=== PATIENT | male | born 1930 | race Caucasian/White ===

== ENCOUNTER 2019-01-21 16:51 | Inpatient (IN) | payer MEDICARE, OTHER ==
[~2019-01-21] VITALS: Ht 160 cm; Wt 53.5 kg
--- NOTE | 2019-01-21 17:00 | NUR ---
PT [id number], C/O DIZZINESS SINCE THIS MORNING, NO BLURRED VISION, PT IS AAOX3, NOT IN RESPIRATORY DISTRESS, V/S STABLE, HOOKED TO MONITOR, KEPT RESTED AND COMFORTABLE.
--- NOTE | 2019-01-21 17:08 | NUR ---
IV LINE ESTABLISHED, LABS DRAWNED AND SENT TO LAB.
[2019-01-21 17:28] LABS: BASOPHILS % (AUTO) 0.6 % (0.0-2.0); EOSINOPHILS % (AUTO) 1.6 % (0.0-6.0); HEMATOCRIT 31 % (39-51); HEMOGLOBIN 10.3 g/dL (13.5-17.5); LYMPHOCYTES # (AUTO) 1.3 /CMM (0.8-4.8); LYMPHOCYTES % (AUTO) 24.1 % (20.0-44.0); MEAN CORPUSCULAR HGB CONC 33 g/dl (31.0-36.0); MEAN CORPUSCULAR VOLUME 79 fL (80-96); MONOCYTES # (AUTO) 0.6 /CMM (0.1-1.30); MONOCYTES % (AUTO) 11.3 % (2.0-12.0); NEUTROPHILS # (AUTO) 3.4 /CMM (1.8-8.9); NEUTROPHILS % (AUTO) 62.4 % (43.0-81.0); PLATELET COUNT (AUTO) 135 /CMM (150-450); RED BLOOD CELL COUNT(AUTO) 3.97 MIL/uL (4.5-6.0); WHITE BLOOD COUNT (AUTO) 5.4 K/uL (4.3-11.0)
[2019-01-21 17:38] LABS: CALCIUM, SERUM 9.1 mg/dL (8.5-10.1); CARBON DIOXIDE 28 mmol/L (21-32); CHLORIDE 99 mmol/L (98-107); CREATININE 2.9 mg/dL (0.6-1.3); GLUCOSE 103 mg/dL (74-106); POTASSIUM 4.6 mmol/L (3.5-5.1); SODIUM SERUM 132 mmol/L (136-145)
[2019-01-21 17:39] LABS: UREA NITROGEN, BLOOD 100 mg/dL (7-18)
--- NOTE | 2019-01-21 17:55 | NUR ---
PT IS BACK FROM THE CT SCAN.
--- NOTE | 2019-01-21 19:29 | NUR ---
REPORT TO KIKI DUMONT FOR [facility].
--- NOTE | 2019-01-21 19:40 | NUR ---
EPIC PAGED FOR POSSIBLE ADMISSIONS
--- NOTE | 2019-01-21 20:06 | NUR ---
ADMIT 307-1 TELE DX ACUTE KIDNEY INJURY ACCEPTING [facility]
--- NOTE | 2019-01-21 20:13 | NUR ---
REPORT GIVEN TO SAND MIXERKIKI GOLDBERG FOR [facility]
[2019-01-21] MEDS ORDERED: IV NS 0.9% 1,000 ML IV PRN (20:45)
--- NOTE | 2019-01-21 20:50 | NUR ---
BUSINESS ANALYTICS MANAGER ADMISSION NOTES RECEIVED PT FROM ER VIA [facility] ACCOMPANIED BY TWO DAUGHTERS, PT AWAKE ALERT ORIENTEDX4, BREATHING EVEN AND UNLABORED ON ROOM AIR. NO COMPLAINT OF PAIN OR DISCOMFORT AT THIS TIME, IV ACCESS ON THE R AC 18G SL PATENT AND FLUSHING. SPD TECH IN PLACE, BED IN LOWEST LOCKED POSITION, CALL LIGHT WITHIN REACH AT ALL TIMES, WILL CONTINUE TO MONITOR.
[2019-01-21] MEDS ORDERED: ZOLPIDEM TARTRATE 5 MG TABLET PO PRN (21:00)
[2019-01-21] MEDS ORDERED: MAG HYDROX/AL HYDROX/SIMETH 30 ML UDC PO PRN (21:00)
[2019-01-21] MEDS ORDERED: ONDANSETRON HCL/PF 4 MG/2 ML VIAL IVP PRN (21:00)
[2019-01-21] MEDS ORDERED: MAGNESIUM HYDROXIDE 30 ML UDC PO PRN (21:00)
[2019-01-21] MEDS ORDERED: HYDROCODONE/APAP 5/325MG 1 EACH TABLET PO PRN (21:00)
[2019-01-21] MEDS ORDERED: Z GUARD REMEDY 2 OZ OINT TP PRN (21:00)
[2019-01-21] MEDS ORDERED: ACETAMINOPHEN 325 MG TABLET PO PRN (21:00)
[2019-01-21] MEDS ORDERED: CLOP75TA15 PO (21:11)
[2019-01-21] MEDS ORDERED: LOSA100T31 PO (21:11)
[2019-01-21] MEDS ORDERED: AMLO5TAB9 PO (21:11)
[2019-01-21] MEDS ORDERED: HYDR12.5 PO (21:11)
[2019-01-21] MEDS ORDERED: TAMS-12 PO (21:11)
[2019-01-21] MEDS ORDERED: ASPI-605 PO (21:11)
[2019-01-21] MEDS ORDERED: CARV6.252 PO (21:11)
[2019-01-21] MEDS ORDERED: ATOR40TA PO (21:11)
[2019-01-21 21:30] VITALS: BP 152/83
[2019-01-21 21:38] LABS: FREE PSA 1.45 ng/mL (0.00-45); PROSTATE SPECIFIC ANTIGEN SCR 3.1 ng/mL (0.00-4.00)
[2019-01-21 23:04] LABS: IRON, SERUM 91 ug/dl (50-175); TOTAL IRON BINDING CAPACITY 280 ug/dl (250-450)
[2019-01-22] VITALS: BP 130/55
[2019-01-22 04:00] VITALS: BP 126/55
--- NOTE | 2019-01-22 06:08 | NUR ---
PT REMAINS IN BED, SLEEPING, AROUSES EASILY TO NAME CALL, BREATHING EVEN AND UNLABORED ON ROOM AIR. NO COMPLAINT OF PAIN OR DISCOMFORT AT THIS TIME, IV ACCESS ON THE R AC 18G NS @75ML//HR PATENT AND FLUSHING. KILN REMOVER IN PLACE SR IN THE 60S, BED IN LOWEST LOCKED POSITION, CALL LIGHT WITHIN REACH AT ALL TIMES, WILL ENDORSE TO DAY NURSE
[2019-01-22 06:33] LABS: BASOPHILS % (AUTO) 0.4 % (0.0-2.0); EOSINOPHILS % (AUTO) 1.6 % (0.0-6.0); HEMATOCRIT 30 % (39-51); HEMOGLOBIN 9.9 g/dL (13.5-17.5); LYMPHOCYTES # (AUTO) 1.3 /CMM (0.8-4.8); LYMPHOCYTES % (AUTO) 22.4 % (20.0-44.0); MEAN CORPUSCULAR HGB CONC 33 g/dl (31.0-36.0); MEAN CORPUSCULAR VOLUME 78 fL (80-96); MONOCYTES # (AUTO) 0.6 /CMM (0.1-1.30); MONOCYTES % (AUTO) 10.2 % (2.0-12.0); NEUTROPHILS # (AUTO) 3.7 /CMM (1.8-8.9); NEUTROPHILS % (AUTO) 65.4 % (43.0-81.0); PLATELET COUNT (AUTO) 120 /CMM (150-450); WHITE BLOOD COUNT (AUTO) 5.6 K/uL (4.3-11.0)
[2019-01-22 06:39] LABS: CHOLESTEROL 77 mg/dL (<200); HDL CHOLESTEROL 41 mg/dL (40-60); LDL 32 mg/dL (0-99); TRIGLYCERIDES 58 mg/dL (30-150)
[2019-01-22 06:42] LABS: ALANINE AMINOTRANSFERASE 18 U/L (12-78); ALBUMIN 3.5 g/dL (3.4-5.0); ALKALINE PHOSPHATASE 66 U/L (46-116); ASPARTATE AMINOTRANSFERASE 14 U/L (15-37); BILIRUBIN,TOTAL 0.5 mg/dL (0.2-1.0); CARBON DIOXIDE 25 mmol/L (21-32); CHLORIDE 104 mmol/L (98-107); GLUCOSE 78 mg/dL (74-106); MAGNESIUM 3.3 mg/dL (1.8-2.4); PHOSPHORUS 5.5 mg/dL (2.5-4.9); POTASSIUM 4.1 mmol/L (3.5-5.1); SODIUM SERUM 140 mmol/L (136-145); TOTAL PROTEIN, SERUM 6.9 g/dL (6.4-8.2)
[2019-01-22 06:50] LABS: UREA NITROGEN, BLOOD 101 mg/dL (7-18)
[2019-01-22 08:00] VITALS: BP 134/52
--- NOTE | 2019-01-22 08:00 | NUR ---
RN Notes received patient in the bed a/o x4, patient stable, no acute respiratory distress, v/s stable. patient refused pain. Encouraged to express feelings and concerns. Patient bed rest, using urinal. iv access on right ac area intact infusing NS at 75 ml/hr, call light within to reach. will continued monitoring.
--- NOTE | 2019-01-22 11:00 | NUR ---
rn notes Seen patient by hospitalist, and nephro MD, orders taken and carried out. Collected UA specimen on clean catch. continued monitoring.
[2019-01-22] MEDS ORDERED: SIMETHICONE 80 MG TAB.CHEW PO PRN (12:30)
--- NOTE | 2019-01-22 15:00 | NUR ---
RN Notes Patient resting in the bed, no acute respiratory distress, call light within to reach, continued monitoring.
[2019-01-22 15:23] LABS: APPEARANCE,URINE CLEAR (CLEAR); BILIRUBIN,URINE NEGATIVE (NEGATIVE); BLOOD, URINE NEGATIVE Ery/uL (NEGATIVE); COLOR,URINE YELLOW (YELLOW); KETONES,URINE NEGATIVE (NEGATIVE); LEUKOCYTE ESTERASE ,URINE NEGATIVE (NEGATIVE); NITRITE, URINE NEGATIVE (NEGATIVE); PH,URINE 5.5 (5.0-8.0); PROTEIN,URINE NEGATIVE (NEGATIVE); UGLUCOSE NEGATIVE (NEGATIVE); UROBILINOGEN,URINE 0.2 EU/dL (0.2)
[2019-01-22 16:00] VITALS: BP 129/53
--- NOTE | 2019-01-22 19:34 | NUR ---
RN CLOSING NOTES Patient awake and comfortable in bed. A/O x 4. VS stable with no acute distress. Denies pain. Breathing even and unlabored on room air. IV access on RAC clean, dry and intact. IV flushes well. All scheduled medications administered. Safety precautions in place. Call light within reach. Will endorse care of plan to oncoming nurse.
[2019-01-22 20:00] VITALS: BP 132/56
--- NOTE | 2019-01-22 20:26 | NUR ---
RN MS OPENING NOTES PT IN BED, AWAKE ALERT ORIENTEDX4, BREATHING EVEN AND UNLABORED ON ROOM AIR. NO COMPLAINT OF PAIN OR DISCOMFORT AT THIS TIME, IV ACCESS ON THE R AC 18G NS @100ML/HR. CANVAS WORKER IN PLACE, BED IN LOWEST LOCKED POSITION, CALL LIGHT WITHIN REACH AT ALL TIMES, WILL CONTINUE TO MONITOR.
[2019-01-22] MEDS: IV NS 0.9% 1,000 ML IV PRN (21:14)
[2019-01-22] MEDS: TAMSULOSIN 0.4 MG CAP.SR.24H PO SCH (21:15)
[2019-01-23 04:02] VITALS: BP 132/56
--- NOTE | 2019-01-23 06:05 | NUR ---
RN MS CLOSING NOTES PT REMAINS IN BED, SLEEPING, AROUSES EASILY TO NAME CALL, BREATHING EVEN AND UNLABORED ON ROOM AIR. NO COMPLAINT OF PAIN OR DISCOMFORT AT THIS TIME, IV ACCESS ON THE R AC 18G NS @100ML//HR PATENT AND FLUSHING.STOOL SAMPLE COLLECTED FOR OB.BED IN LOWEST LOCKED POSITION, CALL LIGHT WITHIN REACH AT ALL TIMES, WILL ENDORSE TO DAY NURSE
[2019-01-23] MEDS: IV NS 0.9% 1,000 ML IV PRN (06:26)
[2019-01-23 06:49] LABS: BASOPHILS % (AUTO) 0.5 % (0.0-2.0); EOSINOPHILS % (AUTO) 1.7 % (0.0-6.0); HEMATOCRIT 33 % (39-51); HEMOGLOBIN 10.9 g/dL (13.5-17.5); LYMPHOCYTES # (AUTO) 1.1 /CMM (0.8-4.8); LYMPHOCYTES % (AUTO) 22.1 % (20.0-44.0); MEAN CORPUSCULAR HGB CONC 33 g/dl (31.0-36.0); MEAN CORPUSCULAR VOLUME 79 fL (80-96); MONOCYTES # (AUTO) 0.5 /CMM (0.1-1.30); MONOCYTES % (AUTO) 9.3 % (2.0-12.0); NEUTROPHILS # (AUTO) 3.2 /CMM (1.8-8.9); NEUTROPHILS % (AUTO) 66.4 % (43.0-81.0); PLATELET COUNT (AUTO) 122 /CMM (150-450); RED BLOOD CELL COUNT(AUTO) 4.19 MIL/uL (4.5-6.0); WHITE BLOOD COUNT (AUTO) 4.9 K/uL (4.3-11.0)
[2019-01-23 06:58] LABS: ALANINE AMINOTRANSFERASE 17 U/L (12-78); ALBUMIN 3.7 g/dL (3.4-5.0); ALKALINE PHOSPHATASE 67 U/L (46-116); ASPARTATE AMINOTRANSFERASE 17 U/L (15-37); BILIRUBIN,TOTAL 0.5 mg/dL (0.2-1.0); CARBON DIOXIDE 23 mmol/L (21-32); CHLORIDE 109 mmol/L (98-107); CREATININE 2.3 mg/dL (0.6-1.3); GLUCOSE 77 mg/dL (74-106); PHOSPHORUS 4.6 mg/dL (2.5-4.9); POTASSIUM 4.3 mmol/L (3.5-5.1); SODIUM SERUM 144 mmol/L (136-145); TOTAL PROTEIN, SERUM 7.5 g/dL (6.4-8.2)
[2019-01-23 07:00] LABS: UREA NITROGEN, BLOOD 86 mg/dL (7-18)
[2019-01-23 07:29] LABS: CREATINE KINASE, TOTAL 54 U/L (39-308); FERRITIN 355 ng/mL (8-388)
--- NOTE | 2019-01-23 07:30 | NUR ---
MS RN Opening Notes Patient asleep, resting in bed. Semi-Fowlers position. Alert and oriented x4, able to make needs known. Farsi/Albanian speaking. No complaints of shortness of breath, chest pain or pain at this time. Respirations even and unlabored on room air, no acute distress noted. Peripheral IV to the right AC 18 gauge, intact, patent and infusing fluids as ordered. Updated patient on current plan of care and safety measures. Patient verbalized understanding. Safety and fall precautions in place: bed in lowest and locked position, side rails up x2, bed alarm on, call light and personal possessions within reach. Will continue to monitor and intervene as needed.
[2019-01-23 07:46] LABS: APPEARANCE,URINE CLEAR (CLEAR); BILIRUBIN,URINE NEGATIVE (NEGATIVE); BLOOD, URINE NEGATIVE Ery/uL (NEGATIVE); COLOR,URINE YELLOW (YELLOW); KETONES,URINE NEGATIVE (NEGATIVE); LEUKOCYTE ESTERASE ,URINE NEGATIVE (NEGATIVE); NITRITE, URINE NEGATIVE (NEGATIVE); PH,URINE 5.5 (5.0-8.0); PROTEIN,URINE NEGATIVE (NEGATIVE); UGLUCOSE NEGATIVE (NEGATIVE); UROBILINOGEN,URINE 0.2 EU/dL (0.2)
[2019-01-23 07:53] LABS: IRON, SERUM 84 ug/dl (50-175); TOTAL IRON BINDING CAPACITY 246 ug/dl (250-450)
[2019-01-23 08:00] VITALS: BP 131/54
[2019-01-23 08:40] LABS: EOSINOPHIL,URINE None Seen
[2019-01-23 09:28] LABS: OCCULT BLOOD STOOL NEGATIVE (NEGATIVE)
[2019-01-23 16:00] VITALS: BP 137/58
--- NOTE | 2019-01-23 18:11 | NUR ---
MS RN Closing Notes Patient awake, resting in bed. Semi-Fowlers position. Alert and oriented x4, able to make needs known. Farsi/Indonesian speaking. No complaints of shortness of breath, chest pain or pain at this time. Respirations even and unlabored on room air, no acute distress noted. Peripheral IV to the right AC 18 gauge, intact, patent and infusing fluids as ordered (noted earlier change in fluid rate). Updated patient on current plan of care and safety measures. Patient verbalized understanding. Safety and fall precautions in place: bed in lowest and locked position, side rails up x2, bed alarm on, call light and personal possessions within reach. Will endorse to night custodian RN for continuity of care.
--- NOTE | 2019-01-23 19:00 | NUR ---
MS NORMA INITIAL NOTES RECEIVED REPORT FROM AM NURSE WHILE DOING OUR ROUNDS, SEEN PT IN BED AWAKE AND ALERT WATCHING TV WITH IVF NS AT 60 ML/HR INFUSING ON HIS RIGHT AC. DENIES ANY PAIN OR ANY DISCOMFORT. HE ONLY ASK FOR HIS MEDICATION TONIGHT. AWARE HOW TO USED THE CALL LIGHT I JUST ENCOURAGE HIM TO USE IF HE NEEDS SOME HELP OR ASSISTANCE. KEPT HIM WARM AND COMFORTABLE AT ALL TIMES. WILL CONTINUE MONITORING. PLACE CALL LIGHT AT REACH.
[2019-01-23 20:00] VITALS: BP 131/57
[2019-01-23] MEDS: TAMSULOSIN 0.4 MG CAP.SR.24H PO SCH (21:20)
--- NOTE | 2019-01-24 | NUR ---
MS GAMER NOTES PT SLEEPING COMFORTABLY IN BED WITHOUT ANY ACUTE DISTRESS NOTED. IVF STILL INFUSING .
[2019-01-24 06:25] LABS: BASOPHILS % (AUTO) 0.6 % (0.0-2.0); EOSINOPHILS % (AUTO) 1.7 % (0.0-6.0); HEMATOCRIT 28 % (39-51); HEMOGLOBIN 9.1 g/dL (13.5-17.5); LYMPHOCYTES # (AUTO) 1.2 /CMM (0.8-4.8); LYMPHOCYTES % (AUTO) 21.3 % (20.0-44.0); MEAN CORPUSCULAR HGB CONC 33 g/dl (31.0-36.0); MEAN CORPUSCULAR VOLUME 79 fL (80-96); MONOCYTES # (AUTO) 0.5 /CMM (0.1-1.30); MONOCYTES % (AUTO) 9.9 % (2.0-12.0); NEUTROPHILS # (AUTO) 3.6 /CMM (1.8-8.9); NEUTROPHILS % (AUTO) 66.5 % (43.0-81.0); PLATELET COUNT (AUTO) 115 /CMM (150-450); RED BLOOD CELL COUNT(AUTO) 3.52 MIL/uL (4.5-6.0); WHITE BLOOD COUNT (AUTO) 5.5 K/uL (4.3-11.0)
[2019-01-24 06:58] LABS: CALCIUM, SERUM 8.5 mg/dL (8.5-10.1); CARBON DIOXIDE 23 mmol/L (21-32); CHLORIDE 112 mmol/L (98-107); CREATININE 1.9 mg/dL (0.6-1.3); GLUCOSE 82 mg/dL (74-106); MAGNESIUM 2.5 mg/dL (1.8-2.4); POTASSIUM 4.1 mmol/L (3.5-5.1); SODIUM SERUM 145 mmol/L (136-145); UREA NITROGEN, BLOOD 66 mg/dL (7-18)
--- NOTE | 2019-01-24 06:58 | NUR ---
MS DEFENSE ANALYST CLOSING NOTES PT BACK TO SLEEP AFTER USING THE RESTROOM. STABLE CORWIN THE NIGHT AND SLEPT WELL. NO SIGNS OF ANY DISTRESS OR ANY DISCOMFORT NOTED. ALL NEEDS MET KEPT HIM WARM AND COMFORTABLE AT ALL TIMES. BED IN LOW AND LOCK IN POSITION WITH SIDE RAILS X2 UP AND PLACE CALL LIGHT AT REACH. WILL ENDORSE TO AM NURSE FOR CONTINUITY OF CARE.
--- NOTE | 2019-01-24 07:56 | NUR ---
MS RN NOTES PATIENT RECEIVED RESTING INSIDE ROOM. AWAKE, ALERT AND ORIENTED, VERBALLY RESPONSIVE AND RESPONDS TO VERBAL AND TACTILE STIMULI. BREATHING EVEN AND UNLABORED. NO CHANGES IN LOC NOTED. PATIENT CALM AND RELAXED. DENIES ANY PAIN OR DISCOMFORT. IVF INFUSING WELL. WILL CONTINUE TO MONITOR. BED LOCKED AND IN LOW POSITION. BILATERAL UPPER SIDE RAILS UP AND LOCKED. CALL LIGHT WITHIN EASY REACH
[2019-01-24 08:32] VITALS: BP 148/58
[2019-01-24 12:09] LABS: PTH, INTACT 49 pg/mL (15-65)
--- NOTE | 2019-01-24 13:53 | NUR ---
MS RN NOTES PATIENT FOR DISCHARGE TODAY. DISCHARGE INSTRUCTIONS AND EDUCATION GIVEN TO PATIENT AND VERBALIZED UNDERSTANDING. NO QUESTIONS REGARDING DISCHARGE INSTRUCTIONS. CONTACT INFORMATION FOR DR. WEEKS'S OFFICE PROVIDED WITH DISCHARGE INSTRUCTIONS. PATIENT VERBALIZED HE WILL CALL OFFICE FOR FOLLOW-UP. ALL BELONGINGS COMPLETE, NO REPORT OF MISSING INVENTORY. IV REMOVED WITH MINIMAL BLEEDING NOTED, PRESSURE DRESSING PLACED ON SITE. PATIENT LEFT UNIT AT 1350 VIA WHEELCHAIR. LEFT IN STABLE CONDITION. NO ACUTE DISTRESS. DENIES ANY PAIN OR DISCOMFORT. ASSISTED BY NURSING STAFF TO PARKING LOT. LEFT HOSPITAL PREMISES VIA PRIVATE CAR WITH DAUGHTER. HOSPITALIST AWARE OF DISCHARGE.
[2019-01-24 14:11] LABS: *SPE A/G RATIO 1.2 (0.7-1.7); *SPE ALBUMIN 3.7 g/dL (2.9-4.4); *SPE ALPHA-1-GLOBULIN 0.3 g/dL (0.0-0.4); *SPE ALPHA-2-GLOBULIN 0.7 g/dL (0.4-1.0); *SPE BETA GLOBULIN 0.8 g/dL (0.7-1.3); *SPE GLOBULIN, TOTAL 3.1 g/dL (2.2-3.9); *SPE M-SPIKE Not Observed g/dL (Not Observed); *SPEGAMMA GLOBULIN 1.3 g/dL (0.4-1.8)
== END 2019-01-24 13:45 | disposition home or self-care (01) | DRG 73 ==
LOC: ER 16:58 → TELE 20:06 → MED 01-22 10:10
PROVIDERS: ADMIT Internal Medicine; ATTEND Hospitalist
DX: G90.8 Other disorders of autonomic nervous system (principal); N17.0 Acute kidney failure with tubular necrosis; E87.1 Hypo-osmolality and hyponatremia; I12.9 Hypertensive chronic kidney disease with stage 1 through stage 4 chronic kidney disease, or unspecified chronic kidney disease; D63.8 Anemia in other chronic diseases classified elsewhere; N18.9 Chronic kidney disease, unspecified; D69.6 Thrombocytopenia, unspecified; I25.10 Atherosclerotic heart disease of native coronary artery without angina pectoris; N40.0 Benign prostatic hyperplasia without lower urinary tract symptoms; I73.9 Peripheral vascular disease, unspecified; E78.5 Hyperlipidemia, unspecified; E86.9 Volume depletion, unspecified
CPT/HCPCS: 36415; 70450-TC; 76770-TC; 80048-TC; 80053-TC; 80061-TC; 81000-TC; 82272-TC; 82550-TC; 82728-TC; 83540-TC; 83735-TC; 83970; 84100-TC; 84153-TC; 84154-TC; 84155; 84165; 84484-TC; 85025-TC; 85730-TC; 87081-TC; 87086-TC; G0378; J7030